=== PATIENT | female | born 1935 | race Two or more races ===

== ENCOUNTER 2024-09-02 15:02 | Emergency (ER) | payer OTHER ==
[~2024-09-02] VITALS: Ht 162.6 cm; Wt 72.6 kg
[2024-09-02] MEDS ORDERED: GLUMETZA500 MG (15:42)
[2024-09-02] MEDS ORDERED: COZAAR25 MG (15:42)
[2024-09-02] MEDS ORDERED: LIPITOR40 M1 (15:42)
[2024-09-02] MEDS ORDERED: KETOROLAC TROMETHAMINE 60 MG VIAL IM STA (16:47)
[2024-09-02] MEDS ORDERED: ORPHENADRINE CITRATE 30 MG/ML AMPUL IM STA (16:47)
[2024-09-02] MEDS ORDERED: ACETAMINOPHEN 500 MG GEL..CAP PO STA (16:48)
[2024-09-02] MEDS ORDERED: ORPHENADRINE CITRATE 30 MG/ML AMPUL ONE (17:27)
[2024-09-02] MEDS ORDERED: KETOROLAC TROMETHAMINE 60 MG VIAL IM ONE ×2 (17:28→18:07)
[2024-09-02] MEDS ORDERED: ACETAMINOPHEN 500 MG GEL..CAP PO ONE (17:28)
[2024-09-02] MEDS ORDERED: ONDANSETRON 4 MG TAB.RAPDIS PO ONE (18:07)
== END 2024-09-02 19:51 | disposition home or self-care (01) ==
LOC: ER 15:04
DX: S00.83XA Contusion of other part of head, initial encounter (principal); W19.XXXA Unspecified fall, initial encounter; Y93.89 Activity, other specified; Y92.89 Other specified places as the place of occurrence of the external cause; Y99.8 Other external cause status
CPT/HCPCS: 70200; 72040; 72100; 73030; 73501; 96372; 99283; J1885; J2360